=== PATIENT | female | born 1985 | race Asian ===

== ENCOUNTER 2017-08-10 00:13 | Inpatient (IN) | payer SELFPAY ==
[~2017-08-10] VITALS: Ht 160 cm; Wt 64.4 kg
[2017-08-10 02:22] VITALS: BP 113/74
[2017-08-10] MEDS ORDERED: MISOPROSTOL 25 MCG TAB ONE ×2 (06:41→12:00)
[2017-08-10] MEDS ORDERED: MISOPROSTOL 25 MCG TAB VG SCH (07:00)
[2017-08-10] MEDS ORDERED: OXYTOCIN 20 UNITS in LACTATED RINGERS 1,000 ML IV SCH (07:04)
[2017-08-10] MEDS ORDERED: METHYLERGONOVINE 0.2 MG/ML AMP IM PRN ×2 (07:05→22:10)
[2017-08-10] MEDS ORDERED: PROMETHAZINE 25 MG/ML VIAL IVP PRN (07:05)
[2017-08-10] MEDS ORDERED: NALBUPHINE 10 MG/ML AMP IVP PRN (07:05)
[2017-08-10] MEDS ORDERED: CARBOPROST 250 MCG/ML AMP IM PRN (07:05)
[2017-08-10] MEDS ORDERED: OXYTOCIN 10 UNITS/ML VIAL IM SCH (07:14)
[2017-08-10] MEDS: LACTATED RINGERS 1,000 ML IV SCH ×2 (07:17→14:32)
[2017-08-10 07:51] LABS: BASOPHILS # (AUTO) 0.1 K/uL (0.00-0.22); BASOPHILS % (AUTO) 1.2 % (0.0-2.0); EOSINOPHILS # (AUTO) 0.1 K/uL (0-0.4); EOSINOPHILS % (AUTO) 0.8 % (0.0-4.0); HEMATOCRIT 30.5 % (36-48); HEMOGLOBIN 9.8 g/dL (12.0-16.0); LYMPHOCYTES # (AUTO) 1.6 K/uL (2.5-16.5); LYMPHOCYTES % (AUTO) 20.6 % (20.5-51.1); MEAN CORPUSCULAR HEMOGLOBIN 27 pg (27-31); MEAN CORPUSCULAR HGB CONC 32 g/dL (33-37); MEAN CORPUSCULAR VOLUME 83 fL (80-94); MONOCYTES # (AUTO) 0.5 K/uL (0.8-1.0); MONOCYTES % (AUTO) 6.1 % (1.7-9.3); NEUTROPHILS # (AUTO) 5.4 K/uL (1.8-7.7); NEUTROPHILS % (AUTO) 71.3 % (42.2-75.2); PLATELET COUNT (AUTO) 191 K/uL (140-450); RED BLOOD CELL COUNT(AUTO) 3.67 MIL/uL (4.20-5.40); WHITE BLOOD COUNT (AUTO) 7.7 K/uL (4.8-10.8)
[2017-08-10 08:16] LABS: ANION GAP 14.4 (8-16); CARBON DIOXIDE 20.7 mmol/L (21-32); POTASSIUM 4.1 mmol/L (3.5-5.1)
[2017-08-10 08:17] LABS: ALBUMIN 2.3 g/dL (3.4-5.0); CREATININE 0.5 mg/dL (0.6-1.3); TOTAL BILIRUBIN 0.2 mg/dL (0.0-1.0)
--- NOTE | 2017-08-10 10:37 | NUR ---
PATIENT HAS BEEN SCREENED AND CATEGORIZED LOW NUTRITION RISK. PATIENT WILL BE SEEN WITHIN 7 DAYS OF ADMISSION. 08/16/[address]
[2017-08-10] MEDS ORDERED: PROMETHAZINE 25 MG/ML VIAL ONE (16:40)
[2017-08-10] MEDS ORDERED: NALBUPHINE HYDROCHLORIDE 10 MG/ML VIAL ONE (16:40)
[2017-08-10] MEDS ORDERED: BUPIVACAINE 0.125%/NS PREMIX 250 ML EPI SCH (18:40)
[2017-08-10] MEDS ORDERED: OXYTOCIN 10 UNITS/ML VIAL ONE (20:44)
[2017-08-10] MEDS ORDERED: TEMAZEPAM 15 MG CAP PO PRN (22:10)
[2017-08-10] MEDS ORDERED: MEASLES, MUMPS, AND RUBELLA 1 VIAL SQVAC PRN (22:10)
[2017-08-10] MEDS ORDERED: OXYTOCIN 10 UNITS/ML VIAL IM PRN (22:10)
[2017-08-10] MEDS ORDERED: IBUPROFEN 800 MG TAB PO PRN (22:10)
[2017-08-10] MEDS ORDERED: oxyCODONE/APAP 5/325 MG 1 TAB TAB PO PRN (22:10)
[2017-08-10] MEDS ORDERED: HYDROcodone/APAP 5/325 MG 1 TAB TAB PO PRN (22:10)
[2017-08-11 07:37] LABS: HEMATOCRIT 29.6 % (36-48); HEMOGLOBIN 9.4 g/dL (12.0-16.0)
[2017-08-11] MEDS: IBUPROFEN 800 MG TAB PO PRN (16:08)
[2017-08-11] MEDS ORDERED: DOCUSATE SOD/SENNA 50/8.6 MG 1 TAB PO SCH (21:00)
[2017-08-12] MEDS: IBUPROFEN 800 MG TAB PO PRN (02:03)
[2017-08-12] MEDS ORDERED: IBUP-1801 PO (13:10)
== END 2017-08-12 14:35 | disposition home or self-care (01) | DRG 775 ==
LOC: MLD 00:13 → MFCC 08-11 00:57
PROVIDERS: ADMIT Obstetrics & Gynecology; ATTEND Obstetrics & Gynecology
PROC: 10E0XZZ Delivery of Products of Conception, External Approach (ICD-10-PCS; principal; 2017-08-10)
PROC: 0KQM0ZZ Repair Perineum Muscle, Open Approach (ICD-10-PCS; 2017-08-10)
PROC: 3E0R3BZ Introduction of Anesthetic Agent into Spinal Canal, Percutaneous Approach (ICD-10-PCS; 2017-08-10)
PROC: 00HU33Z Insertion of Infusion Device into Spinal Canal, Percutaneous Approach (ICD-10-PCS; 2017-08-10)
DX: O69.1XX0 Labor and delivery complicated by cord around neck, with compression, not applicable or unspecified (principal); D64.9 Anemia, unspecified; O99.02 Anemia complicating childbirth; Z28.21 Immunization not carried out because of patient refusal; O70.1 Second degree perineal laceration during delivery; Z3A.39 39 weeks gestation of pregnancy; Z37.0 Single live birth
CPT/HCPCS: 36415; 51702; 59200; 59409; 80053; 85018; 85025; 86592; 86886; 86900; 86901; J2300; J2550; J2590; J7120